=== PATIENT | male | born 1995 | race Caucasian/White ===

== ENCOUNTER 2021-03-03 08:19 | Emergency (ER) | payer OTHER ==
[~2021-03-03] VITALS: Ht 182.9 cm; Wt 90.7 kg
[2021-03-03] MEDS ORDERED: HUMALOG100 UNIT/1 SUBQ (08:54)
[2021-03-03] MEDS ORDERED: LANTUS SUBQ (08:54)
[2021-03-03 09:31] LABS: ABSOLUTE LYMPHOCYTES 0.8 thou/uL (0.8-5.3); ABSOLUTE MONOCYTES 0.6 thou/uL (0.0-1.2); ABSOLUTE NEUTROPHILS 9.1 thou/uL (1.6-8.1); BASOPHILS 0.3 %; EOSINOPHILS 0.3 %; HEMATOCRIT 46.7 % (42.0-52.0); HEMOGLOBIN 15.9 gm/dL (14.0-18.0); LYMPHOCYTES 7.6 %; MCH 33.1 pg (26.0-34.0); MCV 97.5 fL (80.0-100.0); MONOCYTES 5.4 %; MPV 8.5 fl. (7.2-11.1); NUCLEATED RBCS 0 /100WBC; PLATELET COUNT* 284 thou/uL (150-400); POLYS 86.4 %; RBC 4.79 mil/uL (4.50-6.00); RDW-CV 12.7 % (10.5-14.5); WBC 10.5 thou/uL (4.0-11.0)
[2021-03-03 09:37] LABS: CALCIUM 8.9 mg/dL (8.5-10.1); POTASSIUM 4.4 mmol/L (3.5-5.1)
[2021-03-03 09:42] LABS: ALBUMIN 4.2 g/dL (3.4-5.0); TOTAL BILIRUBIN 0.8 mg/dL (<0.1-1.0); TOTAL PROTEIN 7.4 g/dL (6.4-8.2)
[2021-03-03 10:20] LABS: URINE BILIRUBIN NEGATIVE (Negative); URINE BLOOD NEGATIVE (Negative); URINE CLARITY CLEAR; URINE COLOR YELLOW; URINE GLUCOSE-RANDOM NEGATIVE (Negative); URINE KETONES NEGATIVE (Negative); URINE LEUKOCYTES-REFLEX NEGATIVE (Negative); URINE NITRITE-REFLEX NEGATIVE (Negative); URINE PROTEIN NEGATIVE (Negative); URINE UROBILINOGEN 0.2 E.U./dl (0.2-1.0)
[2021-03-03 10:28] LABS: AMP/METHAMP Negative (Negative); BARBITURATES Negative (Negative); BENZODIAZEPINES Negative (Negative); COCAINE Negative (Negative); METHADONE Negative (Negative); OPIATES Negative (Negative); PCP Negative (Negative); THC POSITIVE (Negative)
[2021-03-03 10:44] VITALS: BP 124/75
--- NOTE | 2021-03-03 15:57 | EKG ---
[place] [address] ELECTROCARDIOGRAM REPORT Name: CRISTOPHER ADAME Room: [facility]#: [id number] Admission: 03/03/21 Attend Phys: Discharge: 03/03/21 Date of : 89 Date of Service: 03/03/21923 Report #: [id number] THIS REPORT FOR: //name// [facility] ED Test Date: 2021-03-03 Test Time: 09:24:10 Pat Name: CRISTOPHER ADAME Department: Room: Gender: [employer]: ZAINAB : 1995 Requested By: Faizan Story Order Number: [id number] MD: Enrique Ortega Measurements Intervals [place] Rate: 89 P: 59 OR: 139 QRS: 8 QRSD: 101 T: 41 QT: 360 QTc: 439 Interpretive Statements Sinus rhythm ST elev, probable normal early repol pattern Baseline wander in lead(s) V2 No previous ECG available for comparison Electronically Signed On 03-03-2021 15:57:26 CDT by Enrique Ortega [email or web address] <ELECTRONICALLY SIGNED> By: Enrique Ortega MD, [facility] 03/03/21 1557 3 3 Enrique Ortega MD, [facility] /EPI
== END 2021-03-03 10:45 | disposition home or self-care (01) ==
LOC: M.ERS 08:19
PROVIDERS: Emergency Medicine Emergency Medical Services
DX: S01.512A Laceration without foreign body of oral cavity, initial encounter (principal); R56.9 Unspecified convulsions; R51.9 Headache, unspecified; E11.9 Type 2 diabetes mellitus without complications; Z79.4 Long term (current) use of insulin; W06.XXXA Fall from bed, initial encounter; Y93.89 Activity, other specified; Y92.89 Other specified places as the place of occurrence of the external cause; Y99.8 Other external cause status